=== PATIENT | male | born 1990 | race Caucasian/White ===

== ENCOUNTER 2022-01-12 06:21 | Emergency (ER) | payer BC ==
[2022-01-12 07:30] LABS: HEMOGLOBIN 15.7 gm/dl (14.0-17.5); RED BLOOD COUNT 5.31 M/UL (4.20-5.50)
[2022-01-12 07:53] LABS: BUN/CREATININE RATIO 10 (0-10)
== END 2022-01-12 09:04 | disposition home or self-care (01) ==
LOC: ER1 06:21
PROVIDERS: Physician Assistant
DX: S30.1XXA Contusion of abdominal wall, initial encounter (principal); S00.01XA Abrasion of scalp, initial encounter; R07.9 Chest pain, unspecified; N28.1 Cyst of kidney, acquired; R06.02 Shortness of breath; W01.0XXA Fall on same level from slipping, tripping and stumbling without subsequent striking against object, initial encounter; Y92.009 Unspecified place in unspecified non-institutional (private) residence as the place of occurrence of the external cause
CPT/HCPCS: 71260; 80053; 82550; 82553; 84484; 85025; 93005; 96374; 99285; J1885; Q9967